=== PATIENT | male | born 1990 | race Hispanic/Latino ===

== ENCOUNTER 2023-07-21 10:52 | Inpatient (IN) | payer OTHER, SELFPAY ==
[2023-07-21] MEDS ORDERED: fentaNYL 50 mcg/mL 1 mL Vial ONE (11:02)
[2023-07-21 11:20] LABS: #Basophils 0.1 thou/uL (0.0-0.2); #Eosinphils 0.3 thou/uL (0.0-0.7); #Monocytes 1.1 thou/uL (0.11-0.59); #Neutrophils 19.5 thou/uL (1.40-6.50); %Basophils 0.3 % (0.0-1.0); %Eosinophils 1.1 % (0.0-10.0); %Lymphocytes 10.3 % (21.0-51.0); %Monocytes 4.6 % (0.0-10.0); %Neutrophils 80.1 % (42.0-75.0); Hematocrit 44.1 % (42.0-52.0); Hemoglobin 14.5 g/dL (14.0-18.0); Mean Corpuscular HGB CONC 32.9 g/dL (32.0-36.0); Mean Corpuscular Hemoglobin 28.4 pg (27.0-31.0); Mean Corpuscular Volume 86.5 fl (78.0-98.0); Mean Platelet Volume 11.8 fL (7.4-10.4); Platelet Count 275 10x3/uL (130-400); RBC Distribution Width 13.2 % (11.5-14.5); White Blood Cell (WBC) Count 24.4 10x3/uL (4.8-10.8)
[2023-07-21 11:33] LABS: PTT 34.2 sec (22.9-36.1); Prothrombin Time 14.1 sec (12.0-14.7)
[2023-07-21 11:45] LABS: ALT (SGPT) 38 U/L (8-55); AST (SGOT) 70 U/L (5-34); Albumin 4.1 g/dL (3.5-5.0); Alkaline Phosphatase 73 U/L (40-110); Anion Gap 11 mmol/L (10-20); BUN (Urea Nitrogen) 8 mg/dL (8.9-20.6); Bilirubin, Total 0.6 mg/dL (0.2-1.2); Calc. Creatinine Clearance 0 mL/min (70-130); Calcium 8.9 mg/dL (7.8-10.44); Carbon Dioxide 25 mmol/L (22-29); Chloride 106 mmol/L (98-107); Estimated GFR 123; Globulin 2.6 g/dL (2.4-3.5); Glucose 141 mg/dL (70-105); Lipase 37 U/L (8-78); Potassium 3.8 mmol/L (3.5-5.1); Protein, Total 6.7 g/dL (6.0-8.3); Sodium 138 mmol/L (136-145)
[2023-07-21] MEDS ORDERED: Lidocaine/Transparent Dressing 1 EACH KIT ONE (12:22)
[2023-07-21] MEDS ORDERED: Morphine 4 MG/ML VIAL ONE (12:22)
[2023-07-21] MEDS ORDERED: Boostrix 0.5 ML (Tdap) VIAL (>/=7 yrs of age) ONE (12:23)
[2023-07-21] MEDS ORDERED: PROPOFOL 20 ML ONE (13:03)
[2023-07-21] MEDS ORDERED: Fentanyl 250 MCG/5 ML VIAL ONE (13:03)
[2023-07-21] MEDS ORDERED: Lidocaine 1% PF 5 ML VIAL ONE ×2 (13:05→14:11)
[2023-07-21] MEDS ORDERED: Rocuronium Bromide 10 MG/ML (10ML VIAL) ONE ×2 (13:05→14:11)
[2023-07-21] MEDS ORDERED: Vancomycin 1 GM VIAL ONE (13:14)
[2023-07-21] MEDS ORDERED: Thrombin 5000 UNITS/5 ML VIAL ONE (13:14)
[2023-07-21] MEDS ORDERED: CEFAZOLIN 2 GM VIAL ONE (14:01)
[2023-07-21] MEDS ORDERED: Sodium Chloride 0.9% 100 ML ONE (14:01)
[2023-07-21] MEDS ORDERED: hydrALAZINE 20 MG/ML VIAL SLOW IVP PRN (14:06)
[2023-07-21] MEDS ORDERED: Ondansetron ODT 4 MG TAB PO PRN (14:06)
[2023-07-21] MEDS ORDERED: Ipratropium/Albuterol 3 ML NEB NEB PRN (14:06)
[2023-07-21] MEDS ORDERED: traMADol HCl 50 MG TAB PO PRN (14:06)
[2023-07-21] MEDS ORDERED: Morphine 2 MG/ML VIAL SLOW IVP PRN (14:06)
[2023-07-21] MEDS ORDERED: TETANUS, DIPHTHERIA TOX,ADULT (TDVAX) 0.5 ML VIAL IM ONE (14:06)
[2023-07-21] MEDS ORDERED: PHENYLEPHRINE-NS 100 MCG/ML 10 ML SYRINGE ONE ×2 (14:11→16:15)
[2023-07-21] MEDS ORDERED: PROPOFOL 200 MG/20 ML VIAL ONE (14:11)
[2023-07-21] MEDS ORDERED: Glycopyrrolate 0.2 MG/ML 5 ML SYRINGE ONE ×2 (14:11→17:01)
[2023-07-21] MEDS ORDERED: Dexamethasone 20 MG/5 ML VIAL ONE ×2 (14:11→14:24)
[2023-07-21] MEDS ORDERED: NEOSTIGMINE 3 MG/3 ML SYR 3 MG/3 ML SYRINGE ONE ×2 (14:11→17:01)
[2023-07-21] MEDS ORDERED: Succinylcholine 200 MG/10 ml SYRINGE FS ONE ×2 (14:11→14:24)
[2023-07-21] MEDS ORDERED: Ondansetron PF 4 MG/2 ML Vial ONE ×3 (14:11→17:00)
[2023-07-21] MEDS ORDERED: Dexmedetomidine 200 MCG/2 ML VIAL ONE (14:33)
[2023-07-21] MEDS ORDERED: HYDROmorphone 2 MG/ML VIAL SLOW IVP PRN (17:13)
[2023-07-21] MEDS ORDERED: Meperidine HCl/PF 25 MG/ML VIAL SLOW IVP PRN (17:13)
[2023-07-21] MEDS ORDERED: Ondansetron HCl/PF 4 MG/2 ML Vial IVP PRN (17:13)
[2023-07-21] MEDS ORDERED: Morphine Sulfate 2 MG/ML SYRINGE SLOW IVP PRN (17:13)
[2023-07-21] MEDS ORDERED: Promethazine HCl 25 MG/ML VIAL IM PRN ×2 (17:13→17:14)
[2023-07-21] MEDS ORDERED: Ondansetron PF 4 MG/2 ML Vial IVP PRN (17:14)
[2023-07-21] MEDS ORDERED: HYDROmorphone/PF 10 MG in Sodium Chloride 0.9% 99 ML IV PRN (17:14)
[2023-07-21] MEDS ORDERED: Naloxone HCl 0.4 mg/ml Vial IV PRN (17:14)
[2023-07-21] MEDS ORDERED: diphenhydrAMINE 25 MG CAP PO PRN (17:14)
[2023-07-21] MEDS ORDERED: diphenhydrAMINE 50 MG/ML VIAL IM PRN (17:14)
[2023-07-21] MEDS ORDERED: diphenhydrAMINE 50 MG/ML VIAL IVP PRN (17:14)
[2023-07-21] MEDS ORDERED: Communication Order-Pharmacy FS SCH (17:15)
[2023-07-21] MEDS ORDERED: HYDROmorphone 2 MG/ML VIAL ONE (17:15)
[2023-07-21] MEDS ORDERED: Milk Of Magnesia 30 ML UDCUP PO PRN (18:33)
[2023-07-21] MEDS ORDERED: Cyclobenzaprine 10 MG TAB PO PRN (18:35)
[2023-07-21] MEDS: Sodium Chloride 0.9% 1,000 ML IV SCH ×2 (20:56→23:42)
[2023-07-21] MEDS: Acetaminophen 325 MG TAB PO SCH ×2 (20:56→21:05)
[2023-07-21] MEDS: Docusate 100 MG CAP PO SCH (20:57)
[2023-07-21] MEDS: Famotidine 20 MG TAB PO SCH (20:57)
[2023-07-21] MEDS: CEFAZOLIN 2 GM in Sodium Chloride 0.9% 100 ML IVPB SCH (20:57)
[2023-07-21 22:37] VITALS: BMI 23.0
[2023-07-22] MEDS: Ketorolac Tromethamine 30 MG/ML VIAL IVP SCH ×5 (00:18→23:19)
[2023-07-22] MEDS: Acetaminophen 325 MG TAB PO SCH ×4 (03:20→20:34)
[2023-07-22] MEDS: CEFAZOLIN 2 GM in Sodium Chloride 0.9% 100 ML IVPB SCH ×3 (04:58→21:56)
[2023-07-22] MEDS: Sodium Chloride 0.9% 1,000 ML IV SCH ×3 (05:04→23:24)
[2023-07-22 05:55] LABS: #Monocytes 1.5 thou/uL (0.11-0.59); #Neutrophils 12.7 thou/uL (1.40-6.50); %Basophils 0.1 % (0.0-1.0); %Eosinophils 0.1 % (0.0-10.0); %Lymphocytes 9.8 % (21.0-51.0); %Monocytes 9.2 % (0.0-10.0); Mean Corpuscular Hemoglobin 27.8 pg (27.0-31.0); Mean Corpuscular Volume 86.9 fl (78.0-98.0); Mean Platelet Volume 11.8 fL (7.4-10.4); Platelet Count 220 10x3/uL (130-400); RBC Distribution Width 13.5 % (11.5-14.5); Red Blood Cell (RBC) Count 3.96 mill/uL (4.70-6.10); White Blood Cell (WBC) Count 15.8 10x3/uL (4.8-10.8)
[2023-07-22 05:58] LABS: Hematocrit 34.4 % (42.0-52.0)
[2023-07-22 06:23] LABS: Anion Gap 12 mmol/L (10-20); BUN (Urea Nitrogen) 6 mg/dL (8.9-20.6); Calc. Creatinine Clearance 149 mL/min (70-130); Calcium 8.2 mg/dL (7.8-10.44); Carbon Dioxide 22 mmol/L (22-29); Chloride 105 mmol/L (98-107); Estimated GFR 125; Glucose 114 mg/dL (70-105); Potassium 4.2 mmol/L (3.5-5.1); Sodium 135 mmol/L (136-145)
[2023-07-22] MEDS: Docusate 100 MG CAP PO SCH ×2 (08:52→20:34)
[2023-07-22] MEDS: Famotidine 20 MG TAB PO SCH ×2 (08:52→20:34)
[2023-07-22] MEDS ORDERED: Gentamicin Ophth Ointment 0.3% 3.5 gm Tube R EYE SCH (15:00)
[2023-07-22] MEDS ORDERED: Tobramycin 0.3% Ophth Oint 3.5 GM TUBE R EYE SCH (19:00)
[2023-07-22] MEDS: Tobramycin 0.3% Ophth Oint 3.5 GM TUBE R EYE SCH (21:55)
[2023-07-23] MEDS: Acetaminophen 325 MG TAB PO SCH ×4 (02:47→20:35)
[2023-07-23] MEDS: CEFAZOLIN 2 GM in Sodium Chloride 0.9% 100 ML IVPB SCH ×3 (06:16→20:35)
[2023-07-23] MEDS: Ketorolac Tromethamine 30 MG/ML VIAL IVP SCH ×3 (06:18→18:14)
[2023-07-23] MEDS: Docusate 100 MG CAP PO SCH ×2 (09:26→20:35)
[2023-07-23] MEDS: Famotidine 20 MG TAB PO SCH ×2 (09:26→20:35)
[2023-07-23] MEDS: Tobramycin 0.3% Ophth Oint 3.5 GM TUBE R EYE SCH ×3 (09:26→20:36)
[2023-07-23] MEDS: Sodium Chloride 0.9% 1,000 ML IV SCH ×2 (09:31→17:39)
[2023-07-23] MEDS: Polyethylene Glycol 3350 17 GM Packet PO SCH (12:31)
[2023-07-23] MEDS: Senokot S 8.6-50 MG TAB PO SCH (20:35)
[2023-07-24] MEDS: Sodium Chloride 0.9% 1,000 ML IV SCH ×2 (00:29→19:00)
[2023-07-24] MEDS: Acetaminophen 325 MG TAB PO SCH ×4 (03:26→21:56)
[2023-07-24] MEDS: CEFAZOLIN 2 GM in Sodium Chloride 0.9% 100 ML IVPB SCH ×3 (05:49→21:54)
[2023-07-24] MEDS: Docusate 100 MG CAP PO SCH ×2 (08:45→21:57)
[2023-07-24] MEDS: Tobramycin 0.3% Ophth Oint 3.5 GM TUBE R EYE SCH ×3 (08:45→21:58)
[2023-07-24] MEDS: Senokot S 8.6-50 MG TAB PO SCH ×2 (08:45→21:57)
[2023-07-24] MEDS: Famotidine 20 MG TAB PO SCH ×2 (08:45→21:57)
[2023-07-24] MEDS: Polyethylene Glycol 3350 17 GM Packet PO SCH (08:45)
[2023-07-24] MEDS ORDERED: traMADol HCl 50 MG TAB PO PRN (10:12)
[2023-07-24] MEDS ORDERED: Ibuprofen 600 MG TAB PO SCH (10:15)
[2023-07-24] MEDS: Ibuprofen 200 MG TAB PO SCH ×2 (13:14→18:39)
[2023-07-24] MEDS: traMADol HCl 50 MG TAB PO SCH ×2 (13:15→18:38)
[2023-07-24] MEDS: Gabapentin 300 MG CAP PO SCH ×2 (14:30→21:57)
[2023-07-24] MEDS: Ferrous Sulfate 325 MG TAB PO SCH (16:04)
[2023-07-25] MEDS: traMADol HCl 50 MG TAB PO SCH ×4 (00:12→17:39)
[2023-07-25] MEDS: Ibuprofen 200 MG TAB PO SCH ×4 (00:12→17:38)
[2023-07-25] MEDS: Acetaminophen 325 MG TAB PO SCH ×4 (04:40→22:26)
[2023-07-25] MEDS: CEFAZOLIN 2 GM in Sodium Chloride 0.9% 100 ML IVPB SCH ×3 (06:17→22:26)
[2023-07-25] MEDS: Polyethylene Glycol 3350 17 GM Packet PO SCH (08:40)
[2023-07-25] MEDS: Senokot S 8.6-50 MG TAB PO SCH ×2 (08:40→22:26)
[2023-07-25] MEDS: Docusate 100 MG CAP PO SCH ×2 (08:40→22:26)
[2023-07-25] MEDS: Gabapentin 300 MG CAP PO SCH ×3 (08:41→22:26)
[2023-07-25] MEDS: Famotidine 20 MG TAB PO SCH ×2 (08:41→22:26)
[2023-07-25] MEDS: Tobramycin 0.3% Ophth Oint 3.5 GM TUBE R EYE SCH ×3 (08:41→22:32)
[2023-07-25] MEDS: Ascorbic Acid 500 mg Chewable Tablet PO SCH (08:41)
[2023-07-25] MEDS: Ferrous Sulfate 325 MG TAB PO SCH ×2 (08:41→17:38)
[2023-07-25] MEDS ORDERED: FLU VACC QS2023-24(6MOS UP)/PF 60 MCG/0.5 ML SYRINGE IM ONE (09:00)
[2023-07-26] MEDS: traMADol HCl 50 MG TAB PO SCH ×3 (00:41→11:40)
[2023-07-26] MEDS: Ibuprofen 200 MG TAB PO SCH ×3 (00:42→11:39)
[2023-07-26] MEDS: Acetaminophen 325 MG TAB PO SCH ×2 (03:09→08:01)
[2023-07-26] MEDS: CEFAZOLIN 2 GM in Sodium Chloride 0.9% 100 ML IVPB SCH ×2 (07:22→13:57)
[2023-07-26] MEDS: Ascorbic Acid 500 mg Chewable Tablet PO SCH (08:01)
[2023-07-26] MEDS: Famotidine 20 MG TAB PO SCH (08:01)
[2023-07-26] MEDS: Gabapentin 300 MG CAP PO SCH (08:01)
[2023-07-26] MEDS: Senokot S 8.6-50 MG TAB PO SCH (08:02)
[2023-07-26] MEDS: Polyethylene Glycol 3350 17 GM Packet PO SCH (08:02)
[2023-07-26] MEDS: Ferrous Sulfate 325 MG TAB PO SCH (08:02)
[2023-07-26] MEDS: Docusate 100 MG CAP PO SCH (08:02)
[2023-07-26] MEDS: Tobramycin 0.3% Ophth Oint 3.5 GM TUBE R EYE SCH (08:02)
[2023-07-26] MEDS ORDERED: Milk Of Magnesia 30 ML UDCUP PO SCH (09:15)
[2023-07-26 12:07] VITALS: BP 134/82; TEMP 97.2
== END 2023-07-26 14:40 | disposition home or self-care (01) | DRG 459 ==
LOC: ERS 10:52 → SDC 13:24 → SURG A 20:08
PROVIDERS: ADMIT Specialist; ATTEND Specialist
PROC: 0CQ0XZZ Repair Upper Lip, External Approach (ICD-10-PCS; principal; 2023-07-21)
PROC: 0RG6071 Fusion of Thoracic Vertebral Joint with Autologous Tissue Substitute, Posterior Approach, Posterior Column, Open Approach (ICD-10-PCS; 2023-07-21)
PROC: 0QS004Z Reposition Lumbar Vertebra with Internal Fixation Device, Open Approach (ICD-10-PCS; 2023-07-21)
PROC: 01NB0ZZ Release Lumbar Nerve, Open Approach (ICD-10-PCS; 2023-07-21)
PROC: 0RGA071 Fusion of Thoracolumbar Vertebral Joint with Autologous Tissue Substitute, Posterior Approach, Posterior Column, Open Approach (ICD-10-PCS; 2023-07-21)
PROC: 0SG1071 Fusion of 2 or more Lumbar Vertebral Joints with Autologous Tissue Substitute, Posterior Approach, Posterior Column, Open Approach (ICD-10-PCS; 2023-07-21)
DX: S22.088A Other fracture of T11-T12 vertebra, initial encounter for closed fracture (principal); S34.101A Unspecified injury to L1 level of lumbar spinal cord, initial encounter; S02.85XA Fracture of orbit, unspecified, initial encounter for closed fracture; S32.018A Other fracture of first lumbar vertebra, initial encounter for closed fracture; S32.028A Other fracture of second lumbar vertebra, initial encounter for closed fracture; S32.038A Other fracture of third lumbar vertebra, initial encounter for closed fracture; S22.038A Other fracture of third thoracic vertebra, initial encounter for closed fracture; S22.048A Other fracture of fourth thoracic vertebra, initial encounter for closed fracture; S22.058A Other fracture of T5-T6 vertebra, initial encounter for closed fracture; S01.81XA Laceration without foreign body of other part of head, initial encounter; V49.9XXA Car occupant (driver) (passenger) injured in unspecified traffic accident, initial encounter; Y92.89 Other specified places as the place of occurrence of the external cause
CPT/HCPCS: 12011; 36415; 70450; 70486; 71045; 71260; 72125; 72170; 74177; 80048; 80053; 83690; 85025; 85610; 85730; 90471; 90715; 93005; 96374; 96375; C1713; C1889; G0390; J1100; J1170; J1650; J1885; J2270; J2405; J2704; J3010; J3370; J3490; J7050; Q0162